=== PATIENT | female | born 1995 | race Caucasian/White ===

== ENCOUNTER 2022-01-19 12:02 | Emergency (ER) | payer BC, SELFPAY ==
--- NOTE | ~2022-01-19 | XR_ITS ---
EXAMINATION: XR foot RT min 3V DATE: 01/19/2022 12:27 INDICATION: Right foot pain, initial encounter TECHNIQUE: Dorsoplantar, lateral, and 2 oblique views of the right foot were obtained. COMPARISON: None. FINDINGS: There is an acute, traumatic, closed, transverse fracture in the proximal base of the fifth metatarsal. No additional fracture is identified. The joint spaces are normal. IMPRESSION: 1. Acute intra-articular fracture at the lateral base of the fifth metatarsal. Reviewed, dictated and finalized at location B.
[2022-01-19 12:18] VITALS: BP 111/70; PULSE 78; RESP 16; TEMP 36.9; O2SAT 100
--- NOTE | 2022-01-19 12:28 | ED.LOWEXIN ---
HPI - Extremity Injury (Lower) General Chief Complaint: Extremity Injury, Lower Stated Complaint: Right Foot Pain Time Seen by Provider: 01/19/22 12:28 History of Present Illness HPI Narrative: Shira Velez is a 26 yo female who twisted her foot while walking on gravel 6 days ago and has some ecchymosis of the foot right. She had to have it assessed since the pain and bruising is still there and she is having difficult to walk Related Data Home Medications Medication Instructions Recorded Confirmed No Home Medications 01/19/22 01/19/22 Allergies Allergy/AdvReac Type Severity Reaction Status Date / Time No Known Allergies Allergy Verified 01/19/22 12:09 Review of Systems Review of Systems: CONSTITUTIONAL: Denies fever, chills, sweats. EYES: Denies visual changes, redness, discharge. ENT: Denies rhinorrhea, congestion, sore throat, otalgia. CARDIOVASCULAR: Denies chest pain, palpitations, edema. RESPIRATORY: Denies dyspnea, wheezing, cough GASTROINTESTINAL: Denies abdominal pain, nausea, vomiting, diarrhea. GENITOURINARY: Denies dysuria, hematuria, abnormal discharge SKIN: Denies rash or itching. NEUROLOGIC: Denies numbness, or focal weakness. PSYCHIATRIC: Denies anxiety or depression. Right foot injury 6 days ago [facility] Social History Social History (Updated 01/19/22 @ 12:32 by Zuleyka Estevez CNP) Smoking status: Never smoker Alcohol intake: current Exam Narrative: GENERAL: This is a well-nourished, well-developed patient, in mild distress. HEAD: normocephalic, atraumatic. EYES: . Sclera clear/white. Vision is grossly intact. EARS: External ears normal, . Hearing grossly intact. NOSE: External nose normal without nasal discharge, nares without redness, no rhinorrhea. THROAT: Mucous membranes moist, NECK: Neck supple, non-tender CARDIOVASCULAR: Regular rate and rhythm without murmurs, gallops, or rubs. RESPIRATORY: Clear to auscultation. Breath sounds equal bilaterally. No wheezes, rales, or rhonchi. GASTROINTESTINAL:not done SKIN: warm, intact with no suspicious lesions or rash, good texture and turgor. NEURO: awake, alert, and oriented to person, place and time. There were no obvious focal neurologic abnormalities. Steady gait EXTREMITIES: Normal range of motion. 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 to allow her to walk in normal fashion Level of Care: Express Care Visit Vital Signs Vital signs: Vital Signs Temperature 98.5 F 01/19/22 12:18 Pulse Rate 78 01/19/22 12:18 Respiratory Rate 16 01/19/22 12:18 Blood Pressure 111/70 01/19/22 12:18 Pulse Oximetry 100 01/19/22 12:18 Oxygen Delivery Room Air 01/19/22 12:18 Temperature 98.5 F 01/19/22 12:18 Pulse Rate 78 01/19/22 12:18 Respiratory Rate 16 01/19/22 12:18 Blood Pressure 111/70 01/19/22 12:18 Pulse Oximetry 100 01/19/22 12:18 Oxygen Delivery Room Air 01/19/22 12:18 Critical Care Time Critical Care Time Critical Care Time: No Discharge Plan Discharge Clinical Impression: Fracture of toe of right foot Qualifiers: Encounter type: initial encounter Toe: lesser toe Fracture type: closed Phalanx: proximal Fracture alignment: nondisplaced Qualified Code(s): S92.514A - Nondisplaced fracture of proximal phalanx of right lesser toe(s), initial encounter for closed fracture Patient Disposition: Home, Self-Care Condition: Stable Instructions: Toe Fracture (ED) Additional Instructions: Use boot to keep weight off of area of injury ice when sitting down May use ibuprofen or Tylenol for pain Pre
== END 2022-01-19 12:44 | disposition home or self-care (01) ==
PROVIDERS: Emergency Provider Nurse Practitioner; PCP Internal Medicine
DX: S92.351A Displaced fracture of fifth metatarsal bone, right foot, initial encounter for closed fracture (principal); X50.9XXA Other and unspecified overexertion or strenuous movements or postures, initial encounter
CPT/HCPCS: 73630; 99214; G0463